=== PATIENT | male | born 1965 | race African-American/Black ===

== ENCOUNTER 2019-02-10 19:46 | Emergency (ER) | payer MEDICAID ==
[~2019-02-10] VITALS: Ht 170.2 cm; Wt 70.2 kg
[2019-02-10] MEDS ORDERED: HYDROCODONE/ACETAMINOPHEN 5/325MG TABLET PO ONE (23:45)
[2019-02-11 01:40] VITALS: BP 124/83
== END 2019-02-11 02:04 | disposition home or self-care (01) ==
LOC: ER 19:46
DX: N50.819 Testicular pain, unspecified (principal)
CPT/HCPCS: 76870; 93976; 99284